=== PATIENT | female | born 1990 | race Caucasian/White ===

== ENCOUNTER 2017-01-14 16:31 | Emergency (ER) | payer MEDICAID ==
[~2017-01-14] VITALS: Ht 160 cm; Wt 89.4 kg
[~2017-01-14 16:31] MED LIST: HYDR500T13
[2017-01-14 17:29] VITALS: BP 114/81
== END 2017-01-14 17:44 | disposition home or self-care (01) ==
LOC: ER 16:36
DX: S39.012A Strain of muscle, fascia and tendon of lower back, initial encounter (principal); Z88.6 Allergy status to analgesic agent; Z79.899 Other long term (current) drug therapy; G89.29 Other chronic pain; M54.5 Low back pain; X58.XXXA Exposure to other specified factors, initial encounter; Y93.89 Activity, other specified; Y99.8 Other external cause status; Y92.89 Other specified places as the place of occurrence of the external cause

== ENCOUNTER 2019-04-04 10:56 | Emergency (ER) | payer MEDICAID ==
[~2019-04-04] VITALS: Ht 160 cm; Wt 81.6 kg
[2019-04-04 13:28] VITALS: BP 117/85
== END 2019-04-04 14:29 | disposition home or self-care (01) ==
LOC: ER 10:56
DX: S63.501A Unspecified sprain of right wrist, initial encounter (principal); Z90.49 Acquired absence of other specified parts of digestive tract; Z88.5 Allergy status to narcotic agent; Z88.8 Allergy status to other drugs, medicaments and biological substances; X58.XXXA Exposure to other specified factors, initial encounter; Y93.89 Activity, other specified; Y92.89 Other specified places as the place of occurrence of the external cause; Y99.8 Other external cause status
CPT/HCPCS: 73090